=== PATIENT | female | born 2000 | race Two or more races ===

== ENCOUNTER 2023-02-03 19:40 | Emergency (ER) | payer MEDICAID ==
[~2023-02-03] VITALS: Ht 165.1 cm; Wt 82.0 kg
[2023-02-03 20:19] VITALS: BP 116/86
[2023-02-03 21:24] LABS: Mean Corpuscular Volume 87.3 fL (80.0-100.0); Nucleated Red Blood Cells % 0.1 %
[2023-02-03 21:34] LABS: Basophils # (auto) 0 10 ^3/uL (0-0.2); Basophils % (auto) 0.1 % (0.0-2.0); Eosinophils # (auto) 0 10 ^3/uL (0-0.8); Eosinophils % (auto) 0.4 % (0.0-7.0); Hemoglobin 12.7 g/dL (12.2-16.2); Lymphocytes # (auto) 1.7 10 ^3/uL (0.4-5.4); Mean Corpuscular Hgb Conc. 34.3 g/dL (32.0-36.0); Monocytes # (auto) 0.7 10 ^3/uL (0-1.3); Monocytes % (auto) 6.2 % (0.0-12.0); Neutrophils % (auto) 78.3 % (37.0-80.0); Red Blood Cells 4.24 10^6/uL (4.0-5.20); Red Cell Distribution Width 13.3 % (11.8-14.3); White Blood Cell 11.5 10^3/uL (4.4-10.8)
[2023-02-03] MEDS ORDERED: PROMETHAZINE HCL 25 MG/ML 1ML IM ONE (21:45)
[2023-02-03] MEDS ORDERED: KETOROLAC TROMETH 30 MG/ML 1ML VIAL IM ONE (21:45)
[2023-02-03 21:47] LABS: Albumin 4.1 g/dL (3.4-5.0); Calcium 8.5 mg/dL (8.5-10.1); Potassium 3.5 mmol/L (3.5-5.1)
[2023-02-03 21:48] LABS: Urine Bacteria FEW /hpf (None Seen); Urine Blood Negative /uL (Negative); Urine Specific Gravity 1.026 (1.001-1.035); Urine WBC 4 /hpf (0 - 5)
[2023-02-03 21:50] LABS: BUN/Creatinine Ratio 12.5 (10.0-20.0); Bilirubin, Total 0.5 mg/dL (0.2-1.0)
[2023-02-03] MEDS ORDERED: NITR-87 PO (22:47)
[2023-02-04] MEDS ORDERED: ACET1CAP14 PO (10:34)
[2023-02-04] MEDS ORDERED: CEPH-510 PO (10:34)
== END 2023-02-03 23:08 | disposition left against medical advice (07) ==
LOC: ER 19:40
DX: R51.9 Headache, unspecified (principal); N39.0 Urinary tract infection, site not specified; R10.2 Pelvic and perineal pain; Z32.02 Encounter for pregnancy test, result negative
CPT/HCPCS: 36415; 80053; 81001; 81025; 84702; 85025

== ENCOUNTER 2023-02-04 08:39 | Emergency (ER) | payer MEDICAID ==
[~2023-02-04] VITALS: Ht 165.1 cm; Wt 81.0 kg
[~2023-02-04 08:39] MED LIST: NITR-87 PO
[2023-02-04] MEDS ORDERED: cefTRIAXone SOD 1,000 MG VL IM ONE (10:30)
[2023-02-04] MEDS ORDERED: ACETAMINOPHEN 500 MG TAB PO ONE (10:30)
[2023-02-04 10:32] VITALS: BP 124/75
[2023-02-04] MEDS ORDERED: ACET1CAP14 PO (10:34)
[2023-02-04] MEDS ORDERED: CEPH-510 PO (10:34)
== END 2023-02-04 11:13 | disposition home or self-care (01) ==
LOC: ER 08:39
DX: J02.0 Streptococcal pharyngitis (principal); R51.9 Headache, unspecified; Z88.0 Allergy status to penicillin
CPT/HCPCS: 87070; 87880; 96372; 99283; J0696

== ENCOUNTER → 2023-04-28 | Emergency (ER) | payer MEDICAID ==
[~2023-04-28] VITALS: Ht 165.1 cm; Wt 79.5 kg
[~2023-04-28] MED LIST changes: +ACET1CAP14 PO; +AZIT4SOL EACHEYE; +CEPH-510 PO
[2023-04-28 21:08] VITALS: BP 138/80; PULSE 86; RESP 17; O2SAT 100
== END | disposition home or self-care (01) ==
LOC: ER 20:51
DX: H57.13 Ocular pain, bilateral (principal); Z77.098 Contact with and (suspected) exposure to other hazardous, chiefly nonmedicinal, chemicals; Z88.0 Allergy status to penicillin

== ENCOUNTER 2023-12-06 09:03 | Emergency (ER) | payer MEDICAID ==
[~2023-12-06] VITALS: Ht 167.6 cm; Wt 81.2 kg
[2023-12-06 09:54] VITALS: BP 107/74; PULSE 105; RESP 18; TEMP 98.8; O2SAT 96
[2023-12-06] MEDS: cefTRIAXone SOD 1,000 MG VL IM ONE (10:06)
[2023-12-06] MEDS ORDERED: AZIT500T66 PO (10:10)
[2023-12-06] MEDS ORDERED: LIDO2SOL26 MT (10:10)
== END 2023-12-06 10:24 | disposition home or self-care (01) ==
LOC: ER 09:03
DX: J03.90 Acute tonsillitis, unspecified (principal); Z79.2 Long term (current) use of antibiotics; Z79.899 Other long term (current) drug therapy; Z88.0 Allergy status to penicillin
CPT/HCPCS: 96372; 99283; J0696

== ENCOUNTER 2024-06-11 09:43 | Emergency (ER) | payer MEDICAID ==
[~2024-06-11] VITALS: Ht 167.6 cm; Wt 80.3 kg
[~2024-06-11 09:43] MED LIST changes: +AZIT500T66 PO; +CLIN1CAP70 PO; +LIDO2SOL26 MT
[2024-06-11 10:50] VITALS: BP 118/87; PULSE 98; RESP 16; TEMP 99.1; O2SAT 97
[2024-06-11] MEDS: DexAMETHasone SOD PHOS 10MG/1ML VIAL INJ IM ONE (11:23)
[2024-06-11 11:44] LABS: Urine Bacteria None Seen /hpf (None Seen)
[2024-06-11 11:48] LABS: Chloride 103 mmol/L (98-107); Sodium 138 mmol/L (136-145)
[2024-06-11 11:49] LABS: Anion Gap 7 (5-15); Carbon Dioxide 28 mmol/L (20-30)
[2024-06-11 11:50] LABS: Calcium 10.2 mg/dL (8.7-10.4)
[2024-06-11 11:55] LABS: Blood Urea Nitrogen 7 mg/dL (9-23); Glucose 105 mg/dL (74-106)
[2024-06-11 12:05] LABS: Basophils # (auto) 0 10 ^3/uL (0-0.2); Basophils % (auto) 0.2 % (0.0-2.0); Eosinophils # (auto) 0 10 ^3/uL (0-0.8); Eosinophils % (auto) 0.4 % (0.0-7.0); Hematocrit 40.8 % (36.0-46.0); Hemoglobin 14.1 g/dL (12.2-16.2); Lymphocytes # (auto) 1.8 10 ^3/uL (0.4-5.4); Lymphocytes % (auto) 17.5 % (10.0-50.0); Mean Corpuscular Hemoglobin 30.7 pg (28.0-32.0); Mean Corpuscular Hgb Conc. 34.4 g/dL (32.0-36.0); Mean Corpuscular Volume 89.3 fL (80.0-100.0); Monocytes # (auto) 0.5 10 ^3/uL (0-1.3); Monocytes % (auto) 5.3 % (0.0-12.0); Neutrophils # (auto) 7.7 10 ^3/uL (1.6-8.6); Neutrophils % (auto) 76.6 % (37.0-80.0); Nucleated Red Blood Cells % 0.1 %; Platelet Count (auto) 277 10^3/uL (140-450); Red Blood Cells 4.57 10^6/uL (4.0-5.20); Red Cell Distribution Width 13.5 % (11.8-14.3)
[2024-06-11 12:20] LABS: Rapid Strep A Screen-Throat Negative
[2024-06-11 12:27] LABS: Urine Blood Negative /uL (Negative); Urine Clarity Clear (Clear); Urine Color Light-Yellow (Yellow); Urine Protein, UAD Negative (Negative); Urine Specific Gravity 1.012 (1.001-1.035); Urine Urobilinogen Normal (Negative); Urine WBC 2 /hpf (0 - 5)
[2024-06-11] MEDS: CLINDAMYCIN 300MG IV 50 ML IV ONE (16:23)
== END 2024-06-11 17:11 | disposition left against medical advice (07) ==
LOC: ER 09:43
DX: J36 Peritonsillar abscess (principal); Z88.0 Allergy status to penicillin; Z32.02 Encounter for pregnancy test, result negative
CPT/HCPCS: 36415; 70491; 80048; 81001; 81025; 85025; 87070; 87880; 96365; 96372; 99285; J1100; J3490